=== PATIENT | male | born 1970 | race Caucasian/White ===

== ENCOUNTER 2024-03-21 18:24 | Emergency (ER) | payer SELFPAY ==
[2024-03-21 18:27] VITALS: BP 171/113
[2024-03-21 19:02] VITALS: BP 152/91
--- NOTE | 2024-03-21 19:17 | ED.GENMED ---
History of Present Illness
General
Chief Complaint: Chest Pain
Source: patient
Exam Limitations: none
Time Seen by Provider: 03/21/24 19:17
History of Present Illness
History of Present Illness:
Patient with weeks of left relatively local chest tightness. Worse with breathing worse with cough twisting or turning. Continuous for last 4 days. Had COVID 3 weeks ago. No fever. Some dry cough.
Past History
Past History
ED Past Medical History: Other (Venous insufficiency)
ED Past Surgical History: Other (Anal rectal fistula)
Review of Systems
Review of Systems
All Other Systems: Not applicable
Constitutional: Denies fever
Respiratory: Denies hemoptysis
Cardiac: Denies syncope
Phy Exam
Physical Exam
Physical Exam:
GENERAL: Alert and oriented in no apparent distress
EYE: Orbits normal.
NECK: Supple, no thyroid palpable
ENT: Pharynx without erythema. Some hoarseness to his voice
CARDIAC: Regular rate and rhythm without any obvious murmurs. Localized chest wall tenderness anterior. Reproducible. Also winces with pain with sitting up to shake my hand prior to discharge
LUNGS: Clear breath sounds,normal
ABDOMEN: Soft, without focal tenderness or distention
NEUROLOGICAL: Alert and oriented , grossly non-focal
SKIN: Warm and dry, no rash or lesion, no discoloration, skin intact.
MUSCULOSKELETAL: No edema,no deformity.Good color
PSYCH: Normal and appropriate interaction.
Scores
Heart Score for Chest Pain Patients
STEMI patient?: No
History: Slightly or Non-Suspicious
ECG: Normal
Age: >45 - <65 years
Risk Factors: No Risk Factors
Troponin: </= Normal Limit
Heart Score for Chest Pain Patients: 1
Heart Score Risk: 2.5% MACE over next 6 weeks
Course
Orders/Labs/Results
Orders:
Orders
03/21/24 18:26
Electrocardiogram (*1) Urgent
Reason for Study: Chest Pain
03/21/24 18:27
EKG- Treatment ONCE
03/21/24 19:29
Cardiac Monitoring- Treatment ONCE
IV Insert/Care/Rem.- Treatment PRN
03/21/24 19:37
Basic Metabolic Panel Urgent
Complete Blood Count/With Diff Urgent
D-Dimer Urgent
Troponin I Urgent
03/21/24 21:33
CR Chest - 2 Views Urgent
Comment:
Reason For Exam: chest pain, cough
03/21/24 22:42
Ketorolac [Toradol] 15 mg IV NOW STA
Abnormal Lab Results
03/21/24
19:37
RBC 4.31 L 10^6/uL
(4.70-6.10)
Hct 38.4 L %
(39.0-52.0)
MPV 11.3 H fL
(7.4-10.4)
Abs Immat Gran (auto) 0.1 H 10^3/uL
(0-0.05)
Absolute Neuts (auto) 7.8 H 10^3/uL
(1.4-6.5)
Absolute Monos (auto) 1.0 H 10^3/uL
(0.1-0.6)
Lymphocytes % 15.8 L %
(20.5-51.1)
Carbon Dioxide 21 L mmol/L
(22-30)
Glucose 104 H mg/dl
(70-99)
03/21/24 19:37
03/21/24 19:37
Vital Signs
Initial and Last Documented VS:
Initial Vital Signs
Temp Pulse Resp BP Pulse Ox
99.6 F 112 20 171/113 97
03/21/24 18:27 03/21/24 18:27 03/21/24 18:27 03/21/24 18:27 03/21/24 18:27
Last Documented Vital Signs
Temp Pulse Resp BP Pulse Ox
99.6 F 75 15 115/80 98
03/21/24 18:27 03/21/24 21:45 03/21/24 21:45 03/21/24 21:00 03/21/24 21:45
MDM/Problems Addressed
Differential Diagnosis Includes:
Patient with continual chest discomfort for 4+ days. Pleuritic like worse with breathing coughing twisting turning even reaching with his hand. Stable EKG. Stable troponin. No indication for repeat cardiac testing given the extended period of
time of continuous symptoms. D-dimer perfectly normal. Low suspicion for PE. Behaving like a costochondritis. Chest x-ray negative. Discharged to follow-up
*Radiology
Radiology exam reviewed: preliminary read by ED provider (Negative)
*Pulse Oximetry
Patient hypoxic: no
*EKG
Interpreted by ED Provider?: Yes
Interpretation: abnormal
Comparison EKG: no comparison EKG present
Heart Rate: 107
Rate: tachycardiac
Rhythm: sinus
[place]: normal axis
Interval: normal interval
QRS Pattern: normal QRS
Ischemia: no ischemia
*Critical Care Note
Total Time (30-74mins, 75-104mins- exclusive of procedures): Not Applicable
Update Note
Update Note:
Patient has had continuous symptoms for 4 days. Atypical cardiac and description of pain. Pleuritic like. Localized. Worse with cough twist or turning. D-dimer negative. Low suspicion for PE. Chest x-ray negative. Behaving like a
costochondritis. Anti-inflammatories and follow-up
ED Attending Note
-
Portions of this chart may have been created with voice recognition software.� Occasional wrong word or��sound alike� substitutions may have occurred due to the inherent limitations of voice recognition software.
Discharge Plan
Departure
Patient Disposition: Home (Routine Discharge)
Date of Disposition: 03/21/24
Time of Disposition: 22:30
Patient with high blood pressure during this ER visit?: No
Discharge Problem:
Chest pain/costochondritis
Instructions: BLOOD PRESSURE, Chest pain
Prescriptions:
No Action
zolpidem [Ambien] 10 mg Tablet
7.5 mg PO HS PRN (Reason: insomnia)
oxycodone 5 mg Tablet
5 mg PO DAILY
Referrals:
NONE,* [Family Provider] -
Activity Restrictions/Additional Instructions:
Call your primary care physician Saturday for close follow-up
Recommend Motrin 600 mg 3 times a day for costochondritis
Return sooner with increased pain increased shortness of breath fever or any other concerning symptoms
Interventions
Interventions:
*Risk Screen - Suicide Last Done: 03/21/24 19:35
*General Assessment Last Done: 03/21/24 19:35
*Neglect/Abuse Screening Last Done: 03/21/24 19:35
*ED COVID-19 Vaccine History Last Done: 03/21/24 19:35
ED- Cardiac Assessment Last Done: 03/21/24 19:36
Discharge Date and Time
Print Language: FRENCH
[2024-03-21 19:32] VITALS: BMI 29.8
[2024-03-21 19:51] LABS: % Basophils 0.9 % (0-2); % Eosinophils 1.6 % (0-6); % Immature Granulocytes 0.5 % (0-0.5); % Lymphocytes 15.8 % (20.5-51.1); % Monocytes 8.9 % (1.7-9.3); % Neutrophils 72.3 % (42.2-75.2); Absolute Basophils 0.1 10^3/uL (0-0.2); Absolute Eosinophils 0.2 10^3/uL (0-0.7); Absolute Immature Granulocytes 0.1 10^3/uL (0-0.05); Absolute Lymphocytes 1.7 10^3/uL (1.2-3.4); Absolute Neutrophils 7.8 10^3/uL (1.4-6.5); Hematocrit 38.4 % (39.0-52.0); Hemoglobin 13.2 g/dL (13.0-18.0); Mean Corp Hgb Conc. 34.4 g/dL (33.0-37.0); Mean Corpuscular Hgb 30.6 pg (27.0-31.0); Mean Corpuscular Volume 89.1 fL (80.0-94.0); Mean Platelet Volume 11.3 fL (7.4-10.4); Nucleated Red Blood Cells % 0 % (-); Platelet Count 279 10^3/uL (130-400); Red Blood Cell Count 4.31 10^6/uL (4.70-6.10); Red Cell Dist. Width 12.9 % (11.5-14.5); White Blood Cell Count 10.8 10^3/uL (4.8-10.8)
[2024-03-21 20:00] VITALS: BP 124/77
[2024-03-21 20:01] LABS: Blood Urea Nitrogen 19 mg/dl (9-20); Calcium 9.9 mg/dl (8.4-10.2); Carbon Dioxide 21 mmol/L (22-30); Chloride 106 mmol/L (98-107); Estimated Creatinine Clearance 102 ml/min; Glucose 104 mg/dl (70-99); Potassium 4.1 mmol/L (3.5-5.1); Sodium 137 mmol/L (135-145); eGFR > 60.00
[2024-03-21 20:03] LABS: D-Dimer < 0.27 ug/mlFEU (0.00-0.50)
[2024-03-21 20:08] LABS: Troponin I < 0.012 ng/ml
[2024-03-21 21:00] VITALS: BP 115/80
[2024-03-21 23:10] VITALS: BP 135/74
== END 2024-03-21 23:17 | disposition home or self-care (01) ==
LOC: EMR 18:24
PROVIDERS: EMERGENCY PHYSICIAN Emergency Medicine
DX: R07.89 Other chest pain (principal); M94.0 Chondrocostal junction syndrome [Tietze]; R05.9 Cough, unspecified; I87.2 Venous insufficiency (chronic) (peripheral)
CPT/HCPCS: 99283; 96374; 71046; 80048; 84484; 85025; 85379; 93005